=== PATIENT | male | born 1975 | race African-American/Black ===

== ENCOUNTER 2024-12-07 14:26 | Outpatient (AMB) | payer MEDICAID, SELFPAY ==
--- OUTSIDE RECORDS SUMMARY | 2024-12-07 14:33 | XMS_ITS | Clinical Summary ---
Author Organization [facility] Address [address] [place] [address] Care Team Providers Care Plaque Maker Name Role Phone Meera De La Cruz [facility] Primary Care Provider [phone] Source Comments PLEASE NOTE, if this patient is a minor, it may be UNLAWFUL to discuss sensitive information that is contained in these records (such as FAMILY PLANNING, MENTAL HEALTH or SUBSTANCE ABUSE) with the minor patient's parent or other person without the patient's specific authorization.[facility] Allergies No known active allergies Medications vitamin A and D ointmentIndicatio ns:Pruritic rash Apply topically as needed for dry skin 113 g 5 7 Active blood-glucose meter monitoring kitIndications:Di abetes mellitus without complication (HCC-CMS) as needed for blood glucose monitoring Freestyle lite glucometer. Check sugar daily. Dx; E11.65. 1 Each 0 Active lancets (FREESTYLE LANCETS) 28 gaugeIndications: Diabetes mellitus without complication (HCC-CMS) Freestyle lite lancets. Check sugar daily. Dx; E11.65. 100 Each 3 0 Active blood sugar diagnostic (FREESTYLE TEST) stripsIndications :Diabetes mellitus without complication (HCC-CMS) 1 Each as needed for high blood sugar Freestyle lite teststrips. Check sugar daily. Dx; E11.65. 100 Each 3 1 Active melatonin 10 mg tabIndications:Pr imary insomnia Take 1 Tablet by mouth once daily OTC med 2 Active magnesium 250 mg tab Take 1 Tablet by mouth daily (Pt takes OTC med) 30 Tablet 1 3 Active ibuprofen 800 mg tabletIndications :Routine general medical examination at a health care facility Take 1 Tablet by mouth 3 (three) times daily as needed for pain 60 Tablet 2 3 Active doxycycline (VIBRA-TABS) 100 mg tabletIndications :Need for malaria prophylaxis Take 1 Tablet by mouth once daily Start 1 to 2 day prior leaving [place] 90 Tablet 3 Active Active Problems Problem Noted Date Diagnosed Date Primary insomnia 06/23/2021 Gastroesophageal reflux disease without esophagi tis 06/23/2021 Type 2 diabetes mellitus wit hout complication, without long-term current use of insulin ([facility]) 06/23/2021 Palpitations 08/17/2020 Cutaneous skin tags, face 12/23/2018 Erythema 02/11/2018 Overview (02/11/2018): Pt was seen over at the ear nose and throat he has a diagnosed of erythema over the arytenoids Seasonal allergies 01/16/2016 Chronic lower back pain 07/19/2015 Overview (01/27/2016): XR L spine[place]01[place]17/16[place] [facility] [place] Normal. Hepatitis B surface antigen positive 05/06/2015 Overview (04/25/2017): By blood test 04/06/2015. Following ID at [facility] S/P treatment with Lamivudine visit 11/2015, Testing showed positive hepatitis B s Ag, Hep B e Ag negative, ALT is normal and his VL is only 166, so by our guidelines, he does not need to be treatment. Liver ultrasound done and showed echogenic liver. Repeat ALT within normal. Dx: Inactive Chronic Hep B. Plan liver Bx to r/o cirrhosis. Cont lab monitoring. >> He had liver Bx on 02/28/16, pathology showing Minimal chronic hepatitis with Grade 0-1 necroinflammatory activity and Stage 0 fibrosis with staining for Hepatitis B surface antigen. Immunizations Immunization Administration Dates Next Due Flu, Adjuvant, 65y+ (Fluad) 04/07/2020 Flu, Preservative Free 04/07/2020,03/02/2019, Hep B,adult,adjuvanted (HEPLISAV) 08/30/2020,01/2021 INFLUENZA, SEASONAL, INJECTABLE 04/17/2017,04/16 IPV (IPOL) 08/22/2022 MMR (MMR II/Priorix) 05/06/2015,04/05/2015 PFIZER COVID VACCINE, PURPLE CAP, 12+ 08/25/2020 ,08/04/2020 Pfizer-BioNTech COVID-19 Vac cine Bivalent, (RUSS PFIZER-BIONTECH COVID-19 VACCINE BIVALENT, (RUSS CAP 08/22/2022 TDAP 05/06/2015 Td (adult), 5 Lf tetanus tox oid, preservative free 04/05/2015 Family History Medical History Relation Name Comments Diabetes Brother No Known Problems Father No Known Problems Mother No Known Problems Sister Relation Name Status Comments Brother Alive Father Mother Alive Sister Alive Social History Tobacco Use Types Packs/Day Years Used Date Smoking Tobacco: Never Smokeless Tobacco: Never Tobacco Cessation:Counseling Given: Not Answered Alcohol Use Standard Drinks/Week Comments No 0 (1 standard drink = 0.6 oz pur e alcohol) Social Connections Answer Date Recorded Connectedness 0 08/22/2022 Financial Resource Strain Answer Date R ecorded Financial Resource Strain 0 2022 Stress Answer Date Recorded Stress 0 08/22/2022 Physical Activity Answer Date Recorded Physical Activity 0 03/15/2019 Food Insecurity Answer Date Recorded Food 0 08/22/2022 Transportation Needs Answer Date Record ed Transportation 0 08/22/2022 Housing Stability Answer Date Recorded Housing 0 08/22/2022 Safety and Environment Answer Date Paco rded Safety 0 08/22/2022 Utilities Answer Date Recorded Utilities 0 08/22/2022 Employment Answer Date Recorded Employment 0 03/15/2019 Sex and Gender Information Value Date Recorded Sex Assigned at Male 05/18/2017 9:27 AM PDT Legal Sex Male 12:03 PM PDT Gender Identity Male 05/18/2017 9:27 AM PDT Sexual Orientation Straight 05/18/2017 9: 27 AM PDT Last Filed Vital Signs Vital Sign Reading Time Taken Comments Blood Pressure 148/80 12/19/2022 3:41 PM EDT Pulse 80 12/19/2022 3:41 PM EDT Temperature 37.1 ??C (98.7 ??F) 08/22/2022 10:[address] Respiratory Rate 20 08/22/2022 10:28 AM EST Oxygen Saturation 95% 08/22/2022 10:28 AM EST Inhaled Oxygen Concentration - - Weight 87.2 kg (192 lb 3.2 oz) 08/22/2022 10:28 AM EST Height 182.9 cm (6') 08/22/2022 10:28 AM EST Body Mass Index 26.07 08/22/2022 10:28 AM EST Plan of Treatment Health Maintenance Due Date Last Done Comments Anxiety Screening 1974 Dental FMX/Pano 1974 Diabetes Foot Exam 1974 Tobacco Screening 1974 Syphilis Screening 12/05/1988 Imm-Hepatitis A (1 of 2 - Ri sk 2-dose series) 1993 Imm-Pneumococcal (1 of 2 - PCV) 1993 HIV Screening 08/06/2018 08/06/2017, 04/05/2015 CT Colonography 12/05/2019 FIT/gFOBT 12/05/2019 Fecal DNA 12/05/2019 Flexible Sigmoidoscopy 12/05/2019 Retinopathy Screening 01/27/2020 01/26/2019 Diabetes HbA1c 02/19/2023 08/22/2022, 09/19, 06/19/2021, Additional history exists Dental Prophy 03/08/2023 09/06/2022, 03/06/2022 Annual Wellness (Adult): Ind icated (All Coverage) 08/22/2023 08/22/2022, 04/26/2020, 12/23/2018, Additional history exists Lipid Screening 08/22/2023 08/22/2022, 09/19, 06/19/2021, Additional history exists Serum Creatinine 08/22/2023 08/22/2022, , 06/19/2021, Additional history exists Urine Albumin Creatinine Rat io Screening 08/22/2023 08/22/2022, 10/06/2021, 10/27/2020, Additional history exists Dental BW 09/08/2023 09/06/2022, 03/06/2022 Dental Examination 09/08/2023 09/06/2022, 03/06/2022 Dental Perio Charting 09/08/2023 09/06/2022 Hypertension Screening (#1) 12/19/2023 [id number] (4 - 2024-25 season) 2024 08/22/2022, 08/25/2020, 08/04/2020 Imm-Influenza (#1) 2024 04/07/2020, 0 04/07/2020, 03/02/2019, Additional history exists Alcohol and Drug Screen 07/22/2024 08/22/19 23, 09/15/2021, 07/28/2020, Additional history exists Depression Annual Screen 07/22/2024 08/22/2022 Imm-DTaP/Tdap/Td (2 - Td or Tdap) 05/06/2025 015, 04/05/2015 Colonoscopy 12/01/2027 11/30/2022 Colorectal Cancer Screening 12/01/2027 Hepatitis C Screening Completed 04/26/2020, 020 Imm-Hepatitis B Completed 08/30/2020, 07/28/2020 Procedures Procedure Name Priority Date/Time Associated Diagnosis Comments HISTORIC COLONOSCOPY 11/30/2022 3:00 AM EDT COMP PERIODONTAL EVALUATION - NEW/EST PATIENT Routine 09/06/2022 9:40 AM EST Encounter for dental examination BITEWINGS - FOUR RADIOGRAPHIC IMAGES Routine 09/06/2022 9:40 AM EST Encounter for dental examination PROPHYLAXIS - ADULT Routine 09/06/2022 9 :40 AM EST Encounter for dental examination PERIODIC ORAL EVALUATION ESTABLISHED PATIENT Routine 09/06/2022 9:40 AM EST Encounter for dental examination COMPREHENSIVE METABOLIC PANEL Routine 08/22/2022 11:47 AM EST Routine general medical examination at a health care facility Fatigue, unspecified type Need for vaccination Delayed ejaculation LIPID PANEL Routine 08/22/2022 11:47 AM EST Routine general medical examination at a health care facility Fatigue, unspecified type Need for vaccination Delayed ejaculation MICROALBUMIN/CREATININ E RATIO, URINE, RANDOM Routine 08/22/2022 11:47 AM EST Routine general medical examination at a health care facility Fatigue, unspecified type Need for vaccination Delayed ejaculation HGBA1C W/MPG Routine 08/22/2022 11:47 AM EST Routine general medical examination at a health care facility Fatigue, unspecified type Need for vaccination Delayed ejaculation HEPATITIS A,B,C PANEL Routine 04/26/2020 4:04 PM EDT Hepatitis B surface antigen positive ANTIBODY HIV-1&HIV-2 SINGLE RESULT Routine 08/06/2017 11:50 AM EST Routine adult health maintenance from Last 3 Months or Most Recently Relevant to Health Maintenance Results * HISTORIC COLONOSCOPY (11/30/2022 3:00 AM EDT) 11/30/2022 3:00 AM EDT Jakob Fry MD PROCEDURES Edited Result - Final * (ABNORMAL) HGBA1C W/MPG (08/22/2022 11:47 AM EST) HEMOGLOBIN A1C 6.0(H) <5.7 % of total Hgb [facility] Comment: For someone without known diabetes, a hemoglobin A1c value between 5.7% and 6.4% is consistent with prediabetes and should be confirmed with a follow-up test. For someone with known diabetes, a value <7% indicates that their diabetes is well controlled. A1c targets should be individualized based on duration of diabetes, age, comorbid conditions, and other considerations. This assay result is consistent with an increased risk of diabetes. Currently, no consensus exists regarding use of hemoglobin A1c for diagnosis of diabetes for children. MEAN PLASMA GLUCOSE 136 mg/dL (calc) [facility] Blood Blood / Unknown 08/22/2022 1 1:47 AM EST 08/22/2022 11:48 AM EST Meera [facility] - BLOOD DRAW Edited Result - Final [facility] [address] [place] [address], [facility] [address] [place] [address] (NL2) [place] [address] * MICROALBUMIN/CREATININE RATIO, URINE, RANDOM (08/22/2022 11:47 AM EST) CREATININE, RANDOM URINE 138 20 - 320 mg/dL [facility] MICROALBUMIN 0.6 mg/dL [facility] Comment: Reference Range Not established MICROALBUMIN/CREA TININE RATIO, RANDOM URINE 4 <30 mcg/mg creat [facility] Comment: The ADA defines abnormalities in albumin excretion as follows: Albuminuria Category ?Result (mcg/mg creatinine) Normal to Mildly increased ?? <30 Moderately increased ? 30-299 Severely increased ? > OR = 300 The ADA recommends that at least two of three specimens collected within a 3-6 month period be abnormal before considering a patient to be within a diagnostic category. Urine Urine specimen / Unknown 08/22/2022 11:47 AM EST 08/22/2022 11:48 AM EST Meera De La Cruz [facility] URINE AMBULATORY Final Res ult [facility] [address] [place] [address], [facility] [address] ([address]) [place] [address] * (ABNORMAL) LIPID PANEL (08/22/2022 11:47 AM EST) CHOLESTEROL, TOTAL 206(H) <200 mg/dL [facility] HDL CHOLESTEROL 66 > OR = 40 mg/dL [facility] TRIGLYCERIDES 39 <150 mg/dL [facility] LDL-CHOLESTEROL 128(H) 99 mg/dL (calc) [facility] Comment: Reference range: <100 Desirable range <100 mg/dL for primary prevention; ?? <70 mg/dL for patients with CHD or diabetic patients with > or = 2 CHD risk factors. LDL-C is now calculated using the Angelica calculation, which is a validated novel method providing better accuracy than the Friedewald equation in the estimation of LDL-C. Juan PEREYRA et al. JANE. 2013;310(19): 4252-0375 (http://education.[employer]/faq/GJV789) CHOL/HDLC RATIO 3.1 <5.0 (calc) [facility] NON-HDL CHOLESTEROL 140(H) <130 mg/dL (calc) [facility] Comment: For patients with diabetes plus 1 major ASCVD risk factor, treating to a non-HDL-C goal of <100 mg/dL (LDL-C of <70 mg/dL) is considered a therapeutic option. Blood Blood / Unknown 08/22/2022 1 1:47 AM EST 08/22/2022 11:48 AM EST Meera De La Cruz [facility] - BLOOD DRAW Final Result [employer] [facility] [address] [facility] [address] [place] [address], [facility] [address] [facility] (NL2) [place] [address] * (ABNORMAL) COMPREHENSIVE METABOLIC PANEL (08/22/2022 11:47 AM EST) GLUCOSE 108(H) 65 - 99 mg/dL [facility] Comment: ?Fasting reference interval For someone without known diabetes, a glucose value between 100 and 125 mg/dL is consistent with prediabetes and should be confirmed with a follow-up test. UREA NITROGEN (BUN) 15 7 - 25 mg/dL [facility] CREATININE (blood) 0.89 0.60 - 1.29 mg/dL [facility] EGFR 106 > OR = 60 mL/min/1 .73m2 [facility] Comment: The eGFR is based on the CKD-EPI 2020 equation. To calculate the new eGFR from a previous Creatinine or Cystatin C result, go to https://www.kidney.org/professionals/ kdoqi/gfr%5Fcalculator BUN/CREATININE RATIO NOT APPLICABLE 6 - 22 [facility] SODIUM 138 135 - 146 mmol/L [facility] POTASSIUM 4.8 3.5 - 5.3 mmol/L [facility] CHLORIDE 102 98 - 110 mmol/L [facility] CARBON DIOXIDE 30 20 - 32 mmol/L [facility] CALCIUM 9.4 8.6 - 10.3 mg/dL [facility] PROTEIN, TOTAL 7.2 6.1 - 8.1 g/dL [facility] ALBUMIN 4.3 3.6 - 5.1 g/dL [facility] GLOBULIN 2.9 1.9 - 3.7 g/dL (calc) [facility] ALBUMIN/GLOBUL IN RATIO 1.5 1.0 - 2.5 (calc) [facility] BILIRUBIN, TOTAL 0.6 0.2 - 1.2 mg/dL [facility] ALKALINE PHOSPHATASE 56 36 - 130 U/L [facility] AST 19 10 - 40 U/L [facility] ALT 19 9 - 46 U/L [facility] Blood Blood / Unknown 08/22/2022 1 1:47 AM EST 08/22/2022 11:48 AM EST Meera De La Cruz [facility] - BLOOD DRAW Edited Result - Final [facility] [address] [address], [facility] [address] (NL2) [place] [address] * (ABNORMAL) HEPATITIS A,B,C PANEL (04/26/2020 4:04 PM EDT) HEPATITIS B SURFACE ANTIBODY NEGATIVE NEGATIVE [facility] HEPATITIS B SURFACE ANTIGEN POSITIVE(A) NEGATIVE [facility] Comment: Over the counter supplements containing high doses of biotin may interfere with this assay. ??If interference is suspected, patients shoud be retested after refraining from biotin supplements for 72 hours. HEPATITIS C VIRUS DIAGNOSTIC NEGATIVE NEGATIVE [facility] HEPATITIS B CORE ANTIBODY POSITIVE(A) NEGATIVE [facility] HEPATITIS A ANTIBODY TOTAL POSITIVE(A) NEGATIVE [facility] Comment: Over the counter supplements containing high doses of biotin may interfere with this assay. ??If interference is suspected, patients shoud be retested after refraining from biotin supplements for 72 hours. Blood Blood / Unknown 04/26/2020 4 :04 PM EDT 04/26/2020 6:29 PM EDT Narrative [facility] - 04/26/2020 7:53 PM EDT [employer], a member of [address] [address] [employer] - Becky Aguirre [place] [id number] ORD# [id number] Meera De La Cruz [facility] - BLOOD DRAW Edited Result - Final Performing Organization Address [facility]/ZIP Co de Phone Number [address] [address], * HIV-1 & HIV-2 ANTIBODIES (08/06/2017 11:50 AM EST) [facility] HIV 1 AND 2 ANTIBODY SCREEN NEGATIVE NEGATIVE [facility] Comment: This assay is a 4th generation assay allowing for earlier detection of HIV infection by detecting the presence of the HIV-1 p24 antigen as well as the traditional antibodies to HIV type 1 (including group O) and type 2. ??Use of a 4th generation assay is the current CDC recommendation for HIV screening. Blood specimen (specimen) Blood / Unknown 08/06/2017 11:50 AM EST 08/06/2017 1:21 PM EST Narrative [facility] - 08/06/2017 6:33 PM EST [employer] [address] [place] [address] PT ID [id number] ORD# [id number] Julia Castillo CHIEF BUSINESS DEVELOPMENT OFFICER LAB - BLOOD DRAW Final Result Performing Organization Address City/[facility] Co de Phone Number [address] [address], [place] [phone] from Last 3 Months or Most Recently Relevant to Health Maintenance Insurance [employer] NET DENTAL [employer] [facility]) Member Subscriber Plan / Payer ( fective 2019-Present) Name:Moises Bauer Relation to Subscriber:Self Name:Moises Bauer Payer ID:[id number] Group ID:Not on file Type:Indemnity Address: [address] [place] [id number] Care Teams Plaque Maker Relationship Specialty Start Date End Date Meera De La Cruz FNP [address] [place] [address] PCP - General Internal Medicine 09/30/18
--- NOTE | 2024-12-07 15:04 | AM.OFFWIN_ITS ---
Intake Vital Signs 12/07/24 15:09 Weight 207 lb BP 122/80 Blood Pressure Location Rt brachial Position Sitting Pulse 81 Pulse Source Pulse Oximeter Pulse Oximetry (%) 98 Oxygen Delivery Method Room Air Intake Visit Reasons: REDYE HAND pain in foot/toes Intake Note: Patient here for left toe pain that has been present for about 1 month. Patient Tobacco Use Status: Never used Tobacco Allergies No Known Allergies Allergy (Verified 12/07/24 15:16) Do you need a note to return to daycare/school/sports/work: No HPI HPI Comments History of Present Illness Details History of Present Illness - The patient is a 49-year-old male pres enting with a painful left toe. - The discomfort has been ongoing for ap proximately one month and is severe enough to disturb sleep. - The patient clarified that the pain is not associated with itching. - This presentation followed a period [place] was [place] the [place] - Prior to the visit, the patient has no t attempted any antifungal treatments. Physical Exam General: Cooperative, healthy appearing, comfortable, no acute distress and well developed Orientation: Patient oriented x3 Limitations: No limitations Head: Normal to inspection Ears: Hearing grossly normal bilaterally Nose: Normal External nose present Face and sinus: Normal facial exam Eyes: Appearance normal, both eyes and all related structures Neck: Normal visual inspection and Yes full ROM Respiratory: Normal respiratory effort and able to speak in complete sentences. Skin: Macerated appearance on the left toe, suggestive of a fungal infection Neuro: Patient oriented x3 Extremities: Maceration in between 4th and 5th digits of left foot, no signs of bacterial infection noted. no rash or vesicles, no drainage, full ROM all toes and otherwise normal exam of left foot. [facility] Social History Patient Tobacco Use Status: Never used Tobacco Review of Systems Const All systems reviewed & are unremarkable except as noted in HPI and below Physical Exam Vital Signs: Last Vital Signs Pulse 81 12/07/24 15:09 BP 122/80 12/07/24 15:09 Pulse Ox 98 12/07/24 15:09 Oxygen Delivery Method Room Air 12/07/24 15:09 Assessment & Plan Assessment & Plan (1) Tinea pedis: Code(s): B35.3 - Tinea pedis Qualifiers: Laterality: left Qualified Code(s): B35.3 - Tinea pedis Plan: The patient's symptomatic presentation and clinical examination suggest a fungal infection in the webbing of the left 4th and 5th toes. I advised using an antifungal cream or powder, such as miconazole or clotrimazole, to be applied twice daily. It was stressed that the treatment may require a few weeks to show improvement. The importance of keeping the feet dry and clean to prevent further fungal growth was underscored. Follow-up was recommended if symptoms persist despite treatment. Patient was informed and verbally consented to the use of an ambient scribe for clinic note documentation during this visit. Coding Level of Care Code New Pt Level 3 (78542) Diagnoses Tinea pedis of left foot B35.3 Laterality: left
[2024-12-07 15:09] VITALS: BP 122/80; PULSE 81; O2SAT 98
== END 2024-12-07 15:33 | disposition home or self-care (01) ==
PROVIDERS: Visit Provider Physician Assistant
DX: B35.3 Tinea pedis (principal)

== ENCOUNTER → 2024-12-07 14:26 | Outpatient (BNVA) | payer MEDICAID, SELFPAY | PROVIDERS: Visit Provider Physician Assistant | DX: B35.3 Tinea pedis (principal) | CPT/HCPCS: 99202 ==

== ENCOUNTER 2024-12-21 13:59 | Outpatient (AMB) | payer OTHER, SELFPAY ==
--- NOTE | 2024-12-21 14:07 | MHC.OFFWIV ---
Intake Vital Signs 12/21/24 14:08 Weight 206 lb BP 140/90 H Blood Pressure Location Lt brachial Position Sitting Pulse 71 Pulse Source Pulse Oximeter Pulse Oximetry (%) 99 Oxygen Delivery Method Room Air Intake Visit Reasons: EP ? fungus on both feet Patient Tobacco Use Status: Never used Tobacco Allergies No Known Allergies Allergy (Verified 12/21/24 14:08) Do you need a note to return to daycare/school/sports/work: No HPI HPI Comments History of Present Illness Details History of Present Illness The patient is a 49-year-old male presenting with athlete's foot. The fungal infection has been troubling him for about two months, primarily affecting between the toes on both feet. The patient has attempted self-treatment with qvga-mqy-cqrzpaw products, but they have not been effective in alleviating the condition. He has been using Lamicil. 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 Previously, the patient faced obstacles in addressing the issue earlier due to lack of insurance but has since resolved this. He has an upcoming new patient visit on 01/18. He denies fever, chills, discharge, redness, pain, numbness, or tingling. Physical Exam General: Cooperative, healthy appearing, comfortable, no acute distress and well developed Respiratory: Normal respiratory effort and able to speak in complete sentences. Clear to auscultation bilaterally Cardiovascular: Regular rate and rhythm. Normal S1 and S2 Skin: Moist, white skin noted between the toes on the feet bilaterally. No flaking noted. Feet ashy, no discharge noted. Extremities: Normal to inspection except for fungal infection on both feet Patient was informed and verbally consented to the use of an ambient scribe for clinic note documentation during this visit. [facility] Social History Patient Tobacco Use Status: Never used Tobacco Review of Systems Const All systems reviewed & are unremarkable except as noted in HPI and below Physical Exam Vital Signs: Last Vital Signs Pulse 71 12/21/24 14:08 BP 140/90 H 12/21/24 14:08 Pulse Ox 99 12/21/24 14:08 Oxygen Delivery Method Room Air 12/21/24 14:08 Assessment & Plan Assessment & Plan (1) Tinea pedis: Code(s): B35.3 - Tinea pedis Qualifiers: Laterality: left Qualified Code(s): B35.3 - Tinea pedis Plan: Most likely tinea Plan I prescribed a stronger topical antifungal cream for the treatment of the patient's persistent athlete's foot. I instructed him to apply the medication daily and to keep his feet dry by removing socks when at home. This treatment should be continued until the upcoming podiatry consultation. Additionally, I plan to make a referral to podiatry to manage and further evaluate the condition. The necessary prescription details were forwarded to the patient's preferred pharmacy, [facility]. Orders: Referrals Podiatry Referral B35.3 - Tinea pedis Medications: New terbinafine HCl 1% 1 appl topical BID 14 days 30 grams 1RF Coding Level of Care Code New Pt Level 3 (43517) Diagnoses Tinea pedis of left foot B35.3 Laterality: left
[2024-12-21 14:08] VITALS: BP 140/90; PULSE 71; O2SAT 99
--- OUTSIDE RECORDS SUMMARY | 2024-12-21 15:16 | XMS_ITS | Clinical Summary ---
Author Organization [facility] Address [address] [place] [address] Care Team Providers Care Crtts Name Role Phone Meera De La Cruz [facility] Primary Care Provider [phone] Source Comments PLEASE NOTE, if this patient [...] complication, without long-term current use of insulin ([facility]) 06/23/2021 Palpitations 08/17/2020 Cutaneous skin tags, face 12/23/2018 Erythema 02/11/2018 Overview (02/11/2018): Pt was seen over at the ear nose and throat he has a diagnosed of erythema over the arytenoids Seasonal allergies 01/16/2016 Chronic lower back pain 07/19/2015 Overview (01/27/2016): XR L spine(01/17/16, [facility] [place] [facility]): Normal. Hepatitis B surface antigen positive 05/06/2015 Overview (04/25/2017): By blood test 04/06/2015. Following ID at [facility] S/P treatment with Lamivudine visit 11/2015, Testing [...] Charting 09/08/2023 09/06/2022 Hypertension Screening (#1) 12/19/2023 [id number] (4 - 2024-25 season) 2024 08/22/2022, 08/25/2020, 08/04/2020 Imm-Influenza (#1) 2024 04/07/2020, 0 04/07/2020, 03/02/2019, Additional history exists Alcohol and Drug Screen 07/22/2024 08/22/19 23, 09/15/2021, 07/28/2020, Additional history exists Depression Annual Screen 07/22/2024 08/22/2022 Imm-Zoster, Recombinant (1 of 2) 2024 Imm-DTaP/Tdap/Td (2 - Td or Tdap) 05/06/2025 [...] A1C 6.0(H) <5.7 % of total Hgb [employer] Comment: For someone without known diabetes, a [...] children. MEAN PLASMA GLUCOSE 136 mg/dL (calc) [facility] Blood Blood / Unknown 08/22/2022 1 1:47 AM EST 08/22/2022 11:48 AM EST [facility] - BLOOD DRAW Edited Result - Final [facility] [address] [place] [address] [address] [place] [address], [employer] [address] [place] [address] (NL2) [place] [address] * MICROALBUMIN/CREATININE RATIO, URINE, RANDOM (08/22/2022 11:47 AM EST) CREATININE, RANDOM URINE 138 20 - 320 mg/dL [facility] MICROALBUMIN 0.6 mg/dL Stream[employer] [facility] Comment: Reference Range Not established MICROALBUMIN/CREA TININE RATIO, RANDOM URINE 4 <30 mcg/mg creat [facility] Comment: The ADA defines abnormalities in albumin [...] 11:48 AM EST Meera De La Cruz [facility] URINE AMBULATORY Final Res ult [employer] [address] [place] [address], [employer] [address] (NL2) [place] [address] * (ABNORMAL) LIPID PANEL (08/22/2022 11:47 AM EST) CHOLESTEROL, TOTAL 206(H) <200 mg/dL [facility] HDL CHOLESTEROL 66 > OR = 40 mg/dL arch[facility] TRIGLYCERIDES 39 <150 mg/dL [facility] LDL-CHOLESTEROL 128(H) 99 mg/dL (calc) [facility] Comment: Reference range: <100 Desirable range <100 mg/dL for primary prevention; ?? <70 mg/dL for patients with CHD or diabetic patients with > or = 2 CHD risk factors. LDL-C is now calculated using the Angelica calculation, which is a validated novel method providing better accuracy than the Friedewald equation in the estimation of LDL-C. Juan PEREYRA et al. JANE. 2013;310(19): 3635-4829 (http://education.Eventcheq/faq/YAJ428) CHOL/HDLC RATIO 3.1 <5.0 (calc) [employer] NON-HDL CHOLESTEROL 140(H) <130 mg/dL (calc) [employer] Comment: For patients with diabetes plus 1 major ASCVD risk factor, treating to a non-HDL-C goal of <100 mg/dL (LDL-C of <70 mg/dL) is considered a therapeutic option. Blood Blood / Unknown 08/22/2022 1 1:47 AM EST 08/22/2022 11:48 AM EST Meera De La Cruz [facility] - BLOOD DRAW Final Result [employer] [address] [address], [employer] [address] (NL2) [place] [address] * (ABNORMAL) COMPREHENSIVE METABOLIC PANEL (08/22/2022 11:47 AM EST) GLUCOSE 108(H) 65 - 99 mg/dL [employer] Comment: ?Fasting reference interval For someone without known diabetes, a glucose value between 100 and 125 mg/dL is consistent with prediabetes and should be confirmed with a follow-up test. UREA NITROGEN (BUN) 15 7 - 25 mg/dL [employer] [facility] CREATININE (blood) 0.89 0.60 - 1.29 mg/dL [employer] [facility] EGFR 106 > OR = 60 mL/min/1 .73m2 [employer] Comment: The eGFR is based on the CKD-EPI 2020 equation. To calculate the new eGFR from a previous Creatinine or Cystatin C result, go to https://www.kidney.org/professionals/ kdoqi/gfr%5Fcalculator BUN/CREATININE RATIO NOT APPLICABLE 6 - 22 [employer] SODIUM 138 135 - 146 mmol/L [employer] POTASSIUM 4.8 3.5 - 5.3 mmol/L [employer] CHLORIDE 102 98 - 110 mmol/L [employer] CARBON DIOXIDE 30 20 - 32 mmol/L [employer] CALCIUM 9.4 8.6 - 10.3 mg/dL [facility] PROTEIN, TOTAL 7.2 6.1 - 8.1 g/dL [facility] ALBUMIN 4.3 3.6 - 5.1 g/dL [facility] GLOBULIN 2.9 1.9 - 3.7 g/dL (calc) [facility] ALBUMIN/GLOBUL IN RATIO 1.5 1.0 - 2.5 (calc) [facility] BILIRUBIN, TOTAL 0.6 0.2 - 1.2 mg/dL [facility] ALKALINE PHOSPHATASE 56 36 - 130 U/L [facility] AST 19 10 - 40 U/L [employer] ALT 19 9 - 46 U/L [employer] Blood Blood / Unknown 08/22/2022 1 1:47 AM EST 08/22/2022 11:48 AM EST Meera De La Cruz [facility] - BLOOD DRAW Edited Result - Final archify [facility] [address] [facility] [address] [place] [address], [employer] [facility] [address] [facility] (NL2) [place] [address] * (ABNORMAL) HEPATITIS A,B,C PANEL (04/26/2020 4:04 PM EDT) HEPATITIS B SURFACE ANTIBODY NEGATIVE NEGATIVE [facility] HEPATITIS B SURFACE ANTIGEN POSITIVE(A) NEGATIVE [facility] Comment: Over the counter supplements containing high doses of biotin may interfere with this assay. ??If interference is suspected, patients shoud be retested after refraining from biotin supplements for 72 hours. HEPATITIS C VIRUS DIAGNOSTIC NEGATIVE NEGATIVE [facility] HEPATITIS B CORE ANTIBODY POSITIVE(A) NEGATIVE [facility] HEPATITIS A ANTIBODY TOTAL POSITIVE(A) NEGATIVE [facility] Comment: Over the counter supplements containing high doses of biotin may interfere with this assay. ??If interference is suspected, patients shoud be retested after refraining from biotin supplements for 72 hours. Blood Blood / Unknown 04/26/2020 4 :04 PM EDT 04/26/2020 6:29 PM EDT [facility] - 04/26/2020 7:53 PM EDT [employer], a member of [address] [address] [employer] - Becky Aguirre MD [place] [id number] ORD# [id number] Meera De La [facility] - BLOOD DRAW Edited Result - Final Performing Organization Address City/[facility]/ZIP Co de Phone Number [address] [address], * HIV-1 & HIV-2 ANTIBODIES (08/06/2017 11:50 AM EST) [facility] HIV 1 AND 2 ANTIBODY SCREEN NEGATIVE NEGATIVE [facility] Comment: This assay is a [...] 11:50 AM EST 08/06/2017 1:21 PM EST [facility] - 08/06/2017 6:33 PM EST [employer] [address] [place] [address] PT ID [id number] ORD# [id number] Julia Castillo [facility] - BLOOD DRAW Final Result Performing Organization Address City/[facility] Co de Phone Number [address] [address], from Last 3 Months or Most Recently Relevant to Health Maintenance Insurance [employer] NET DENTAL [facility] [place] [address] [facility] ([facility]) Member Subscriber Plan / Payer ( fective 2019-Present) Name:Moises Bauer Relation to Subscriber:Self Name:Moises Bauer Payer ID:[id number] Group ID:Not on file Type:Indemnity Address: [address] [place] [id number] Care Teams Crtts Relationship Specialty Start Date End Date Meera De La Cruz FNP [address] [place] [address] PCP - General Internal Medicine 09/30/18
== END 2024-12-21 15:12 | disposition home or self-care (01) ==
PROVIDERS: Visit Provider Physician Assistant Medical
DX: B35.3 Tinea pedis (principal)

== ENCOUNTER → 2024-12-21 13:59 | Outpatient (BNVA) | payer OTHER, SELFPAY | PROVIDERS: Visit Provider Nurse Practitioner Family | DX: B35.3 Tinea pedis (principal) | CPT/HCPCS: 99212 ==

== ENCOUNTER 2025-01-18 14:00 | Outpatient (AMB) | payer OTHER, SELFPAY ==
--- NOTE | 2025-01-18 14:03 | A.OFFPC_ITS ---
Vital Signs 01/18/25 14:04 01/18/25 14:38 Height 6 ft 2 in Weight 205 lb 6 oz BMI 26.4 BP 126/90 H 140/78 H Blood Pressure Location Lt brachial Lt brachial Position Sitting Sitting Respiration 16 Pulse 86 Pulse Source Pulse Oximeter Temp 99 F Temp Source Oral Pulse Oximetry (%) 98 Oxygen Delivery Method Room Air Intake Visit Reasons: establish care Director Of Workforce Development Required: No Accompanied by: Self / Same As Patient Allergies No Known Allergies Allergy (Verified 01/18/25 14:23) Medication List - Last Reconciled 01/18/25 by NAVEEN Rivera terbinafine HCl 1% 1 appl topical BID 14 days Tobacco use date assessed: 01/18/25 Dental Screening Dental Screen Date: 01/18/25 Did you have a dental visit in the last 12 months?: No Did you have a dental problem in the last 6 months where you did not have access to dental care?: No Was dental information given to patient?: No HPI establish care HPI Details Previous PCP:[facility], 3 years agorodolfo Last visit:he does not remember 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 The patient will return in the 6 weeks for completed physical and lab review colonoscopy 2 years ago. Reports that everything was good and they told him to repeat in 10 years. [facility] Family History (Updated 01/18/25 @ 14:14 by ISH Ramirez) Other Diabetes Social History Housing: Apartment Patient Tobacco Use Status: Never used Tobacco e-Cigarette/Vaping Use: Never Used Second Hand Smoke Exposure: No service: No Current occupational status: employed Current occupational exposures/hazards: No Cognitive needs: No Hearing needs: No Vision needs: Yes Questionnaire PHQ-9 Over the last 2 weeks, how often have you been bothered by any of the following problems? 1. Little interest or pleasure in doing things: not at all 2. Feeling down, depressed, or hopeless: not at all 3. Trouble falling or staying asleep, or sleeping too much: not at all 4. Feeling tired or having little energy: not at all 5. Poor appetite or overeating: not at all 6. Feeling bad about yourself - or that you are a failure or have let yourself or your family down: not at all 7. Trouble concentrating on things, such as reading the newspaper or watching television: not at all 8. Moving or speaking so slowly that other people could have noticed. Or the opposite - being so fidgety or restless that you have been moving around a lot more than usual: not at all 9. Thoughts that you would be better off or of hurting yourself in some way: not at all Total score: 0 Source: Developed by Drs. Calixto Rodríguez, Nona Courtney, Aron Carroll and colleagues, with an educational niharika from [employer]. Thrive Questionnaire Date Thrive assessed: 01/18/25 I am a: Patient What is your living situation today?: I have a steady place to live Within the past 12 months, did the food you bought not last and you didn't have the money to get more?: I choose not to answer this question Within the past 12 months, did you worry whether your food would run out before you got money to buy more?: Never true Do you have trouble paying for medicines?: No Do you have trouble getting transportation to medical appointments?: No Do you have trouble paying your heating and electricity bill?: No Do you have trouble taking care of your child, family member or friend?: No Do you have trouble with day-to-day activities such as bathing, preparing meals, shopping, managing finances, etc.?: No Are you currently unemployed and looking for a job?: No Are you interested in more education?: No Please select the resources that you would like help with: None Currently or been in a relationship where the following occur: I choose not to answer THRIVE Score: 0 AUDIT C Alcohol Use Questionnaire (AUDIT-C) 1. How often do you have a drink containing alcohol?: Never 3. How often do you have six or more drinks on one occasion?: Never Total Score: 0 WERO-7 AMB Questionnaire WERO-7 Date WERO - 7 assessed: 01/18/25 Feeling nervous, anxious, or on edge: 0 = Not at all Not being able to stop or control worryin = Not at all Worrying too much about different things: 0 = Not at all Trouble relaxin = Not at all Being so restless that it is hard to sit still: 0 = Not at all Becoming easily annoyed or irritable: 0 = Not at all Feeling afraid as if something awful might happen: 0 = Not at all Total WERO-7 score (0-4 normal; 5-9 mild; 10-14 moderate; 15-21 severe): 0 Source: Developed by Drs. Calixto Rodríguez, Nona Courtney, Aron Carroll and colleagues, with an educational niharika from [employer]. Review of Systems Const Denies headache(s) Eyes Denies loss of vision ENT Denies vertigo, Denies dizziness, Denies headache(s) and Denies sore throat Card Denies chest pain, Denies leg edema and Denies lightheadedness Resp Denies cough, Denies hemoptysis and Denies wheezing GI Denies abdominal pain, Denies melena, Denies constipation, Denies diarrhea and Denies vomiting Denies dysuria, Denies urinary frequency and Denies urinary urgency Musc Denies arthralgias, Denies joint swelling, Denies numbness and Denies tingling Neuro Denies Abnormal speech present, Denies behavioral changes, Denies vertigo, Denies dizziness, Denies headache(s), Denies loss of vision, Denies memory loss, Denies numbness and Denies tingling Psych Denies anxiety, Denies behavioral changes, Denies depression, Denies memory loss and Denies panic attacks Aníbal/Lymph Denies easy bleeding and Denies easy bruising Aller/Immun Denies wheezing Physical exam (Primary Care) Vital Signs: Last Vital Signs Temp 99 F 01/18/25 14:04 Pulse 86 01/18/25 14:04 Resp 16 01/18/25 14:04 BP 140/78 H 01/18/25 14:38 Pulse Ox 98 01/18/25 14:04 Oxygen Delivery Method Room Air 01/18/25 14:04 BMI result Body Mass Index 26.4 Tobacco/Smoking Status: Tobacco use Status Tobacco use date assessed 01/18/25 01/18/25 14:08 Patient Tobacco Use Status Never used Tobacco 01/18/25 14:04 e-Cigarette/Vaping Use Never Used 01/18/25 14:16 PHQ-9: PHQ-9 Score PHQ-9: Total score 0 01/18/25 14:36 Thrive Assessment: Date of Thrive Assessment Date Thrive assessed 01/18/25 01/18/25 14:08 Currently or been in a relationship where the following occur: I choose not to answer Const General: healthy appearing, no acute distress, alert and awake Nutritional Appearance: well nourished Orientation/consciousness: oriented to person, oriented to place and oriented to time HENMT Ears: TM's normal bilaterally General nose exam: Normal nasal mucous membranes and turbinates present Eyes Conjunctivae: conjunctivae normal Sclerae: sclerae normal Pupils: Equal, round and reactive pupils present Neck Neck: Yes no lymphadenopathy and Yes no JVD Thyroid: Thyroid normal Carotids: no bruits Resp Effort & Inspection: normal respiratory effort and not tachypneic Auscultation: no crackles, no rales, no rhonchi and no wheezes Cardio Rate: regular rate Rhythm: regular rhythm Heart sounds: no murmurs and normal S1 and S2 GI Palpation (GI): Soft to palpation, nontender, no hepatomegaly and no sp lenomegaly Auscultation: normal bowel sounds Skin General skin exam: no rashes or lesions noted and dry skin Neuro General: oriented to person, oriented to place and oriented to time Cranial nerves: Yes Equal, round and reactive pupils present Speech: No Abnormal speech present Gait exam (Neuro): Normal gait present Motor exam (neuro): no tremor noted Extrem Right upper extremity: full ROM Left upper extremity: full ROM Right lower extremity: full ROM; no edema Left lower extremity: full ROM; no edema Psych Mental Status: mental status grossly normal Speech and movement: Normal speech and movement present Affect: normal affect Attitude: cooperative Thought process: Normal thought process present Results AMB Hemoglobin A1c AMB Hemoglobin A1c 7.9 % Last Edit by ISH Ramirez on 01/18/25 14 :48 Coding Assessment & Plan Assessment & Plan Orders: Orders Complete Blood Count Auto Diff Today B35.3 - Tinea pedis, Z00.00 - Encounter for general adult medical examination without abnormal findings Comprehensive [place]. Panel Fast Today B35.3 - Tinea pedis, Z00.00 - Encounter for general adult medical examination without abnormal findings PSA,Total (Free>4and<10) Today B35.3 - Tinea pedis, Z00.00 - Encounter for general adult medical examination without abnormal findings Lipid Panel Today B35.3 - Tinea pedis, Z00.00 - Encounter for general adult medical examination without abnormal findings TSH reflex Free T4 Today B35.3 - Tinea pedis, Z00.00 - Encounter for general adult medical examination without abnormal findings UA CC w/rflx Micro + Cult Today B35.3 - Tinea pedis, Z00.00 - Encounter for general adult medical examination without abnormal findings Vitamin D 25-OH Total Today B35.3 - Tinea pedis, Z00.00 - Encounter for general adult medical examination without abnormal findings AMB Hemoglobin A1c Today Z13.9 - Encounter for screening, unspecified Medications: New ciclopirox 0.77% 1 appl topical BID 90 grams 1RF 4 weeks metformin 500 mg PO BID 60 tabs 2RF Discontinued terbinafine HCl 1% Discontinued Reason: Duplicate 1 appl topical BID 14 days 30 grams 1RF
[2025-01-18 14:04] VITALS: BP 126/90; PULSE 86; RESP 16; TEMP 37.2; O2SAT 98; BMI 26.4
--- OUTSIDE RECORDS SUMMARY | 2025-01-18 14:36 | XMS_ITS | Clinical Summary ---
Author Organization [facility] Address [address] [place] [address] Care Team Providers Care Shafting Worker Name Role Phone Meera De La Cruz [facility] Primary Care Provider [phone] Source Comments PLEASE NOTE, if this patient [...] meter monitoring kitIndications:Di abetes mellitus without complication ([facility]) as needed for blood glucose monitoring Freestyle lite glucometer. Check sugar daily. Dx; E11.65. 1 Each 0 Active lancets (FREESTYLE LANCETS) 28 gaugeIndications: Diabetes mellitus without complication ([facility]) Freestyle lite lancets. Check sugar daily. Dx; E11.65. 100 Each 3 0 Active blood sugar diagnostic (FREESTYLE TEST) stripsIndications :Diabetes mellitus without complication ([facility]) 1 Each as needed for high blood [...] complication, without long-term current use of insulin ([facility]) 06/23/2021 Palpitations 08/17/2020 Cutaneous skin tags, face 12/23/2018 Erythema 02/11/2018 Overview (02/11/2018): Pt was seen over at the ear nose and throat he has a diagnosed of erythema over the arytenoids Seasonal allergies 01/16/2016 Chronic lower back pain 07/19/2015 Overview (01/27/2016): XR L spine(01/17/16, [facility]): Normal. Hepatitis B surface antigen positive 05/06/2015 Overview (04/25/2017): By blood test 04/06/2015. Following ID at [facility] S/P treatment with Lamivudine visit [...] 80 12/19/2022 3:41 PM EDT Temperature 37.1 C (98.7 F) 08/22/2022 10:28 AM EST Respiratory Rate 20 08/22/2022 10:28 AM EST [...] Flexible Sigmoidoscopy 12/05/2019 Retinopathy Screening 01/27/2020 01/26/2019 Hemoglobin A1c 02/19/2023 08/22/2022, 09/19, 06/19/2021, Additional history exists [...] Charting 09/08/2023 09/06/2022 Hypertension Screening (#1) 12/19/2023 [id number] ( season) 2024 08/22/2022, 08/25/2020, 08/04/2020 Alcohol and Drug Screen 07/22/2024 08/22/19 23, 09/15/2021, 07/28/2020, Additional history exists Depression Annual Screen 07/22/2024 08/22/2022 Imm-Zoster, Recombinant (1 of 2) 2024 Imm-Influenza (Season Ended) 2025, 04/07/2020, 03/02/2019, Additional history exists Imm-DTaP/Tdap/Td (2 - Td or Tdap) 05/06/2025 [...] A1C 6.0(H) <5.7 % of total Hgb [employer] Comment: For someone without known diabetes, a [...] children. MEAN PLASMA GLUCOSE 136 mg/dL (calc) [employer] Blood Blood / Unknown 08/22/2022 1 1:47 AM EST 08/22/2022 11:48 AM EST Meera [facility] - BLOOD DRAW Edited Result - Final [employer] [address] [place] [address] [address] [place] [address], [employer] [address] [place] [address] (NL2) [place] [address] * MICROALBUMIN/CREATININE RATIO, URINE, RANDOM (08/22/2022 11:47 AM EST) CREATININE, RANDOM URINE 138 20 - 320 mg/dL [facility] MICROALBUMIN 0.6 mg/dL [employer] [facility] Comment: Reference Range Not established MICROALBUMIN/CREA TININE RATIO, RANDOM URINE 4 <30 mcg/mg creat [employer] [facility] Comment: The ADA defines abnormalities in albumin excretion as follows: Albuminuria Category Result (mcg/mg creatinine) Normal to Mildly increased <30 Moderately increased 30-299 Severely increased > OR = 300 The ADA recommends that at least two of three specimens collected within a 3-6 month period be abnormal before considering a patient to be within a diagnostic category. Urine Urine specimen / Unknown 08/22/2022 11:47 AM EST 08/22/2022 11:48 AM EST Meera De La Cruz [facility] LAB URINE AMBULATORY Final Res ult [employer] [facility] [address] [facility] 3RD [place] [address], [facility] [address] [facility] (NL2) [place] [address] * (ABNORMAL) LIPID PANEL (08/22/2022 11:47 AM EST) CHOLESTEROL, TOTAL 206(H) <200 mg/dL [facility] HDL CHOLESTEROL 66 > OR = 40 mg/dL [employer] [facility] TRIGLYCERIDES 39 <150 mg/dL [facility] LDL-CHOLESTEROL 128(H) 99 mg/dL (calc) [employer] [facility] Comment: Reference range: <100 Desirable range <100 mg/dL for primary prevention; <70 mg/dL for patients with CHD or diabetic patients with > or = 2 CHD risk factors. LDL-C is now calculated using the Angelica calculation, which is a validated novel method providing better accuracy than the Friedewald equation in the estimation of LDL-C. Juan PEREYRA et al. JANE. 2013;310(19): 6072-4946 (http://education.Parature.Biologics Modular/faq/RQK778) CHOL/HDLC RATIO 3.1 <5.0 (calc) [facility] NON-HDL CHOLESTEROL 140(H) <130 mg/dL (calc) [facility] [employer] Comment: For patients with diabetes plus 1 major ASCVD risk factor, treating to a non-HDL-C goal of <100 mg/dL (LDL-C of <70 mg/dL) is considered a therapeutic option. Blood Blood / Unknown 08/22/2022 1 1:47 AM EST 08/22/2022 11:48 AM EST Meera De La Cruz [facility] LAB - BLOOD DRAW Final Result [facility] [address] [address], [facility] [address] [facility] (NL2) [place] [address] * (ABNORMAL) COMPREHENSIVE METABOLIC PANEL (08/22/2022 11:47 AM EST) GLUCOSE 108(H) 65 - 99 mg/dL [facility] Comment: Fasting reference interval For someone without known diabetes, a glucose value between 100 and 125 mg/dL is consistent with prediabetes and should be confirmed with a follow-up test. UREA NITROGEN (BUN) 15 7 - 25 mg/dL [facility] CREATININE (blood) 0.89 0.60 - 1.29 mg/dL [facility] EGFR 106 > OR = 60 mL/min/1 .73m2 [facility] Comment: The eGFR is based on the CKD-EPI 2020 equation. To calculate the new eGFR from a previous Creatinine or Cystatin C result, go to https://www.kidney.org/professionals/ kdoqi/gfr%5Fcalculator BUN/CREATININE RATIO NOT APPLICABLE 6 - 22 [facility] SODIUM 138 135 - 146 mmol/L [facility] POTASSIUM 4.8 3.5 - 5.3 mmol/L [facility] CHLORIDE 102 98 - 110 mmol/L [facility] CARBON DIOXIDE 30 20 - 32 mmol/L [facility] CALCIUM 9.4 8.6 - 10.3 mg/dL [facility] PROTEIN, TOTAL 7.2 6.1 - 8.1 g/dL [facility] ALBUMIN 4.3 3.6 - 5.1 g/dL [facility] [facility] GLOBULIN 2.9 1.9 - 3.7 g/dL (calc) [facility] ALBUMIN/GLOBUL IN RATIO 1.5 1.0 - 2.5 (calc) [facility] BILIRUBIN, TOTAL 0.6 0.2 - 1.2 mg/dL [facility] ALKALINE PHOSPHATASE 56 36 - 130 U/L [employer] [facility] AST 19 10 - 40 U/L [facility] ALT 19 9 - 46 U/L [facility] Blood Blood / Unknown 08/22/2022 1 1:47 AM EST 08/22/2022 11:48 AM EST Meera De La Cruz [facility] LAB - BLOOD DRAW Edited Result - Final [facility] [address] [address], [facility] [address] (NL2) [place] [address] * (ABNORMAL) HEPATITIS A,B,C PANEL (04/26/2020 4:04 PM EDT) HEPATITIS B SURFACE ANTIBODY NEGATIVE NEGATIVE [facility] HEPATITIS B SURFACE ANTIGEN POSITIVE(A) NEGATIVE [facility] Comment: Over the counter supplements containing high doses of biotin may interfere with this assay. If interference is suspected, patients shoud be retested after refraining from biotin supplements for 72 hours. HEPATITIS C VIRUS DIAGNOSTIC NEGATIVE NEGATIVE [facility] HEPATITIS B CORE ANTIBODY POSITIVE(A) NEGATIVE [facility] HEPATITIS A ANTIBODY TOTAL POSITIVE(A) NEGATIVE [facility] Comment: Over the counter supplements containing high doses of biotin may interfere with this assay. If interference is suspected, patients shoud be retested after refraining from biotin supplements for 72 hours. Blood Blood / Unknown 04/26/2020 4 :04 PM EDT 04/26/2020 6:29 PM EDT Narrative [facility] - 04/26/2020 7:53 PM EDT [employer], a member of [address] [address] Pediatric Physician - Becky Aguirre MD PT ID [id number] ORD# [id number] Meerajoanne [facility] - BLOOD DRAW Edited Result - Final Performing Organization Address [facility]/ZIP Co de Phone Number [facility] [address] [place] [address], [place] [phone] * HIV-1 & HIV-2 ANTIBODIES (08/06/2017 11:50 AM EST) [facility] HIV 1 AND 2 ANTIBODY SCREEN NEGATIVE NEGATIVE [facility] Comment: This assay is a 4th generation assay allowing for earlier detection of HIV infection by detecting the presence of the HIV-1 p24 antigen as well as the traditional antibodies to HIV type 1 (including group O) and type 2. Use of a 4th generation assay is the current CDC recommendation for HIV screening. Blood specimen (specimen) Blood / Unknown 08/06/2017 11:50 AM EST 08/06/2017 1:21 PM EST [facility] - 08/06/2017 6:33 PM EST [address] [address] PT ID [id number] ORD# [id number] Julia Castillo [facility] - BLOOD DRAW Final Result Performing Organization Address [facility] de Phone Number [address] [address], [place] [phone] from Last 3 Months or Most Recently Relevant to Health Maintenance Insurance HEALTH SAF[employer]Y NET DENTAL [employer] [place] [address] [facility]) Member Subscriber Plan / Payer (Ef fective 2019-Present) Name:Moises Bauer Relation to Subscriber:Self Name:Moises Bauer Payer ID:[id number] Group ID:Not on file Type:Indemnity Address: [address] [place] [id number] Care Teams Shafting Worker Relationship Specialty Start Date End Date Meera De La Cruz FNP [address] [place] [phone] PCP - General Internal Medicine 09/30/18
[2025-01-18 14:38] VITALS: BP 140/78
== END 2025-01-18 14:55 | disposition home or self-care (01) ==
LOC: HO.HMCH 14:01
DX: Z13.9 Encounter for screening, unspecified (principal)

== ENCOUNTER → 2025-01-18 14:00 | Outpatient (BNVA) | payer OTHER, SELFPAY | DX: E11.65 Type 2 diabetes mellitus with hyperglycemia (principal); B35.3 Tinea pedis | CPT/HCPCS: 83036; 96127; 99202 ==

== ENCOUNTER 2025-01-19 11:06 | Outpatient (REF) | payer OTHER, SELFPAY ==
--- OUTSIDE RECORDS SUMMARY | 2025-01-19 12:24 | XMS_ITS | Clinical Summary ---
Author Organization [facility] Address [address] [place] [address] Care Team Providers Care Histology Supervisor Name Role Phone Meera De La Cruz [facility] Primary Care Provider [phone] Source Comments PLEASE NOTE, if this patient [...] meter monitoring kitIndications:Di abetes mellitus without complication ([facility]) as needed for blood glucose monitoring Freestyle lite glucometer. Check sugar daily. Dx; E11.65. 1 Each 0 Active lancets (FREESTYLE LANCETS) 28 gaugeIndications: Diabetes mellitus without complication ([facility]) Freestyle lite lancets. Check sugar daily. Dx; E11.65. 100 Each 3 0 Active blood sugar diagnostic (FREESTYLE TEST) stripsIndications :Diabetes mellitus without complication ([facility]) 1 Each as needed for high blood [...] complication, without long-term current use of insulin ([facility]) 06/23/2021 Palpitations 08/17/2020 Cutaneous skin tags, face 12/23/2018 Erythema 02/11/2018 Overview (02/11/2018): Pt was seen over at the ear nose and throat he has a diagnosed of erythema over the arytenoids Seasonal allergies 01/16/2016 Chronic lower back pain 07/19/2015 Overview (01/27/2016): XR L spine(01/17/16, [facility]): Normal. Hepatitis B surface antigen positive 05/06/2015 Overview (04/25/2017): By blood test 04/06/2015. Following ID at [facility] S/P treatment with Lamivudine visit 11/2015, [...] Charting 09/08/2023 09/06/2022 Hypertension Screening (#1) 12/19/2023 Mob-VUHQQ-32 ( season) 2024 08/22/2022, 08/25/2020, 08/04/2020 Alcohol [...] A1C 6.0(H) <5.7 % of total Hgb M2M [facility] Comment: For someone without known diabetes, a [...] children. MEAN PLASMA GLUCOSE 136 mg/dL (calc) M2M Solution Blood Blood / Unknown 08/22/2022 1 1:47 AM EST 08/22/2022 11:48 AM EST Meera [facility] - BLOOD DRAW Edited Result - Final [employer] [address] [place] [address] [address] [place] [address], M2M [employer] [address] [place] [address] (NL2) [place] [address] * MICROALBUMIN/CREATININE RATIO, URINE, RANDOM (08/22/2022 11:47 AM EST) CREATININE, RANDOM URINE 138 20 - 320 mg/dL [employer] [facility] MICROALBUMIN 0.6 mg/dL [employer] [facility] Comment: Reference Range Not established MICROALBUMIN/CREA TININE RATIO, RANDOM URINE 4 <30 mcg/mg creat [employer] [facility] Comment: The ADA defines abnormalities in [...] 11:48 AM EST Meera De La Cruz [facility] LAB URINE AMBULATORY Final Res ult [employer] [facility] [address] [facility] 3RD [place] [address], [employer] [facility] [address] [facility] (NL2) [place] [address] * (ABNORMAL) LIPID PANEL (08/22/2022 11:47 AM EST) CHOLESTEROL, TOTAL 206(H) <200 mg/dL [employer] [facility] HDL CHOLESTEROL 66 > OR = 40 mg/dL [employer] [facility] TRIGLYCERIDES 39 <150 mg/dL [employer] [facility] LDL-CHOLESTEROL 128(H) 99 mg/dL (calc) [employer] [facility] Comment: Reference range: <100 Desirable range <100 mg/dL for primary prevention; <70 mg/dL for patients with CHD or diabetic patients with > or = 2 CHD risk factors. LDL-C is now calculated using the Angelica calculation, which is a validated novel method providing better accuracy than the Friedewald equation in the estimation of LDL-C. Juan PEREYRA et al. JANE. 2013;310(19): 4571-2957 (http://education.Green Vision Systems.bMenu/faq/RRX548) CHOL/HDLC RATIO 3.1 <5.0 (calc) M2M Solution NON-HDL CHOLESTEROL 140(H) <130 mg/dL (calc) M2M Solution Comment: For patients with diabetes plus 1 major ASCVD risk factor, treating to a non-HDL-C goal of <100 mg/dL (LDL-C of <70 mg/dL) is considered a therapeutic option. Blood Blood / Unknown 08/22/2022 1 1:47 AM EST 08/22/2022 11:48 AM EST Meera De La Cruz [facility] LAB - BLOOD DRAW Final Result [employer] [address] [address], [employer] [facility] [address] [facility] (NL2) [place] [address] * (ABNORMAL) COMPREHENSIVE METABOLIC PANEL (08/22/2022 11:47 AM EST) GLUCOSE 108(H) 65 - 99 mg/dL [employer] [facility] Comment: Fasting reference interval For someone without known diabetes, a glucose value between 100 and 125 mg/dL is consistent with prediabetes and should be confirmed with a follow-up test. UREA NITROGEN (BUN) 15 7 - 25 mg/dL [employer] [facility] CREATININE (blood) 0.89 0.60 - 1.29 mg/dL [employer] [facility] EGFR 106 > OR = 60 mL/min/1 .73m2 [employer] [facility] Comment: The eGFR is based on the CKD-EPI 2020 equation. To calculate the new eGFR from a previous Creatinine or Cystatin C result, go to https://www.kidney.org/professionals/ kdoqi/gfr%5Fcalculator BUN/CREATININE RATIO NOT APPLICABLE 6 - 22 [employer] [facility] SODIUM 138 135 - 146 mmol/L [employer] [facility] POTASSIUM 4.8 3.5 - 5.3 mmol/L [employer] [facility] CHLORIDE 102 98 - 110 mmol/L [employer] [facility] CARBON DIOXIDE 30 20 - 32 mmol/L [employer] [facility] CALCIUM 9.4 8.6 - 10.3 mg/dL [employer] [facility] PROTEIN, TOTAL 7.2 6.1 - 8.1 g/dL [employer] [facility] ALBUMIN 4.3 3.6 - 5.1 g/dL [facility] GLOBULIN 2.9 1.9 - 3.7 g/dL (calc) [employer] [facility] ALBUMIN/GLOBUL IN RATIO 1.5 1.0 - 2.5 (calc) [employer] [facility] BILIRUBIN, TOTAL 0.6 0.2 - 1.2 mg/dL [employer] [facility] ALKALINE PHOSPHATASE 56 36 - 130 U/L [employer] [facility] AST 19 10 - 40 U/L [employer] [facility] ALT 19 9 - 46 U/L [facility] Blood Blood / Unknown 08/22/2022 1 1:47 AM EST 08/22/2022 11:48 AM EST Meera De La Cruz [facility] LAB - BLOOD DRAW Edited Result - Final [employer] [address] [address], [employer] [address] (NL2) [place] [address] * (ABNORMAL) HEPATITIS A,B,C PANEL (04/26/2020 4:04 [...] PM EDT 04/26/2020 6:29 PM EDT Narrative [facility] - 04/26/2020 7:53 PM EDT [employer], a member of [address] [address] General Office Worker - Becky Aguirre MD PT ID [id number] ORD# [id number] Meerajoanne [facility] - BLOOD DRAW Edited Result - Final Performing Organization Address [facility]/ZIP Co de Phone Number [facility] [address] [place] [address], [place] [phone] * HIV-1 & HIV-2 ANTIBODIES (08/06/2017 11:50 AM EST) [facility] HIV 1 AND 2 ANTIBODY SCREEN NEGATIVE [...] 11:50 AM EST 08/06/2017 1:[address] [facility] - 08/06/2017 6:33 PM EST [address] [address] PT ID [id number] ORD# [id number] Julia Castillo [employer] LAB - BLOOD DRAW Final Result Performing Organization Address [facility] de Phone Number [address] [address], [place] [phone] from Last 3 Months or Most Recently Relevant to Health Maintenance Insurance HEALTH SAFETY NET DENTAL [employer] [place] [id number] [facility]) Member Subscriber Plan / Payer (Ef fective 2019-Present) Name:Moises Bauer Relation to Subscriber:Self Name:Moises Bauer Payer ID:[id number] Group ID:Not on file Type:Indemnity Address: [address] [place] [address] Care Teams Histology Supervisor Relationship Specialty Start Date End Date Meera De La Cruz FNP [address] [place] [address] PCP - General Internal Medicine 09/30/18
[2025-01-19 12:58] LABS: MANUAL DIFF FLAG NO
[2025-01-19 13:15] LABS: Hematocrit 42.8 % (42.0-52.0); Hemoglobin 13.9 g/dl (14.0-18.0); Imm Gran Abs Auto 0.00 X10*3/uL (0.00-0.03); Imm Gran Pct Auto 0.0 % (0.0-0.4); Lymphocytes Absolute Auto 1.8 X10*3/uL (1.2-4.9); Mean Corpuscular HGB Conc 32.5 g/dl (31.0-36.0); Mean Corpuscular Hemoglobin 27.6 pg (27.0-33.0); Mean Corpuscular Volume 85.1 fL (80.0-98.0); NRBC Abs Auto 0.000 X10*3/uL (0.0-0.012); NRBC Pct Auto 0.0 /100WBC (0.0-0.2); Platelet Count 247 X10*3/uL (160-400); Red Blood Count 5.03 X10*6/uL (4.60-5.80); White Blood Count 4.3 X10*3/uL (4.8-10.8)
[2025-01-19 13:21] LABS: Appearance Urine Turbid; Glucose Urine UA Negative (Negative); PH 5.0 (5.0-9.0); Specific Gravity - Urine >= 1.030 (1.005-1.025)
[2025-01-19 16:44] LABS: Alanine Aminotransferase 37 U/L (0-40); Albumin Level 4.2 g/dL (3.5-5.0); Alkaline Phosphatase 77 U/L (39-117); Anion Gap 12 (12-20); Aspartate Amino Transferase 36 U/L (5-37); Blood Urea Nitrogen 13 mg/dL (9-16); Calcium 9.2 mg/dL (8.4-10.2); Carbon Dioxide 26 mmol/L (22-29); Chloride 103 mmol/L (96-108); Cholesterol 183 mg/dL (<200); Estimated Glomerular Filt Rate > 60; HDL Cholesterol 49 mg/dL (>40); Potassium 4.0 mmol/L (3.3-5.1); Sodium 137 mmol/L (135-145); Total Protein 7.4 g/dL (6.5-8.0); Triglycerides 58 mg/dL (<150)
[2025-01-19 16:56] LABS: PSA,Total (Free>4and<10) 2.71 ng/mL (0.00-4.00)
== END 2025-01-19 11:07 | disposition home or self-care (01) ==
LOC: HO.HMGCLDS 11:06
DX: Z00.00 Encounter for general adult medical examination without abnormal findings (principal); B35.3 Tinea pedis
CPT/HCPCS: 36415; 80053; 80061; 81003; 82306; 84153; 84443; 85025

== ENCOUNTER 2025-04-05 13:49 | Outpatient (AMB) | payer OTHER, SELFPAY ==
[2025-04-05 13:52] VITALS: BP 110/62; PULSE 70; RESP 18; TEMP 36.2; O2SAT 98; BMI 26.2
--- NOTE | 2025-04-05 13:52 | MHC.PC.OV ---
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 Accompanied by: Self / Same As Patient Allergies No Known Allergies Allergy (Verified 04/05/25 14:22) Medication List - Last Reconciled 04/05/25 by NAVEEN Rivera ibuprofen 800 mg PO Q8H PRN metformin 500 mg PO BID Tobacco use date assessed: 04/05/25 Dental Screening Dental Screen Date: 04/05/25 Did you have a dental visit in the last 12 months?: No Did you have a dental problem in the last 6 months where you did not have access to dental care?: No Was dental information given to patient?: No HPI annual exam/labs HPI Details The patient is a 49-year-old male presenting for annual physical Dentist: up to date Eye: up to date Snellen: Right: Left: Corrected vision: yes, glasses STI screening: Colonoscopy: [facility] 2 years ago Pap Smer: PHQ-9: Flu: yes COVID: x3 Tdap: Due-the patient reports that he was in [place] and we will get this done at a later date Diet: Reports regular diet Exercise: Reports not much exercise due to work scheduled The patient is a 49-year-old male presenting for a routine physical examination and management of chronic conditions. The patient has a history of Diabetes Mellitus, with a recent hemoglobin A1c of 7.7, slightly decreased from a previous value of 7.9. The current management plan includes increasing the dosage of metformin to two tablets twice daily to better control blood glucose levels. The patient also has hyperlipidemia, with slightly elevated LDL cholesterol levels. Dietary modifications have been recommended to manage cholesterol levels, including reducing intake of high-cholesterol foods and fried foods. Hypertension is another chronic condition being monitored, with current management focusing on lifestyle modifications. Preventative care measures discussed include updating the tetanus vaccination, which was last administered in 2014 and is now due. The patient has Tinea Versicolor widespread on his torso and his requesting a cream for this [facility] Medical History (Updated 04/06/25 @ 21:31 by NAVEEN Rivera) Tinea versicolor Tinea pedis Diabetes mellitus Family History Other Diabetes Social History Housing: Apartment Patient Tobacco Use Status: Never used Tobacco e-Cigarette/Vaping Use: Never Used Second Hand Smoke Exposure: No service: No Current occupational status: employed Current occupational exposures/hazards: No Cognitive needs: No Hearing needs: No Vision needs: Yes Questionnaire PHQ-9 Over the last 2 weeks, how often have you been bothered by any of the following problems? 1. Little interest or pleasure in doing things: not at all 2. Feeling down, depressed, or hopeless: not at all 3. Trouble falling or staying asleep, or sleeping too much: not at all 4. Feeling tired or having little energy: not at all 5. Poor appetite or overeating: not at all 6. Feeling bad about yourself - or that you are a failure or have let yourself or your family down: not at all 7. Trouble concentrating on things, such as reading the newspaper or watching television: not at all 8. Moving or speaking so slowly that other people could have noticed. Or the opposite - being so fidgety or restless that you have been moving around a lot more than usual: not at all 9. Thoughts that you would be better off or of hurting yourself in some way: not at all Total score: 0 Depression Screening Interpretation: Negative Depression Screening Done: Yes Source: Developed by Drs. Calixto Rodríguez, Nona Courtney, Aron Carroll and colleagues, with an educational niharika from [employer]. Thrive Questionnaire Date Thrive assessed: 04/05/25 I am a: Patient What is your living situation today?: I have a steady place to live Within the past 12 months, did the food you bought not last and you didn't have the money to get more?: I choose not to answer this question Within the past 12 months, did you worry whether your food would run out before you got money to buy more?: Never true Do you have trouble paying for medicines?: No Do you have trouble getting transportation to medical appointments?: No Do you have trouble paying your heating and electricity bill?: No Do you have trouble taking care of your child, family member or friend?: No Do you have trouble with day-to-day activities such as bathing, preparing meals, shopping, managing finances, etc.?: No Are you currently unemployed and looking for a job?: No Are you interested in more education?: No Please select the resources that you would like help with: None Currently or been in a relationship where the following occur: I choose not to answer THRIVE Score: 0 AUDIT C Alcohol Use Questionnaire (AUDIT-C) 1. How often do you have a drink containing alcohol?: Never 3. How often do you have six or more drinks on one occasion?: Never Total Score: 0 WERO-7 AMB Questionnaire WERO-7 Date WERO - 7 assessed: 04/05/25 Feeling nervous, anxious, or on edge: 0 = Not at all Not being able to stop or control worryin = Not at all Worrying too much about different things: 0 = Not at all Trouble relaxin = Not at all Being so restless that it is hard to sit still: 0 = Not at all Becoming easily annoyed or irritable: 0 = Not at all Feeling afraid as if something awful might happen: 0 = Not at all Total WERO-7 score (0-4 normal; 5-9 mild; 10-14 moderate; 15-21 severe): 0 Source: Developed by Drs. Calixto Rodríguez, Nona Courtney, Aron Carroll and colleagues, with an educational niharika from [employer]. Review of Systems Const Denies headache(s) Eyes Denies loss of vision ENT Denies vertigo, Denies dizziness, Denies headache(s) and Denies sore throat Card Denies chest pain, Denies leg edema and Denies lightheadedness Resp Denies cough, Denies hemoptysis and Denies wheezing GI Denies abdominal pain, Denies melena, Denies constipation, Denies diarrhea and Denies vomiting Denies dysuria, Denies urinary frequency and Denies urinary urgency Musc Denies arthralgias, Denies joint swelling, Denies numbness and Denies tingling Skin/Breast Reports change in pigmentation (The white spots all over torso) Neuro Denies Abnormal speech present, Denies behavioral changes, Denies vertigo, Denies dizziness, Denies headache(s), Denies loss of vision, Denies memory loss, Denies numbness and Denies tingling Psych Denies anxiety, Denies behavioral changes, Denies depression, Denies memory loss and Denies panic attacks Aníbal/Lymph Denies easy bleeding and Denies easy bruising Aller/Immun Denies wheezing Physical exam (Primary Care) Vital Signs: Last Vital Signs Temp 97.1 F 04/05/25 13:52 Pulse 70 04/05/25 13:52 Resp 18 04/05/25 13:52 BP 110/62 04/05/25 13:52 Pulse Ox 98 04/05/25 13:52 Oxygen Delivery Method Room Air 04/05/25 13:52 BMI result Body Mass Index 26.2 Tobacco/Smoking Status: Tobacco use Status Tobacco use date assessed 04/05/25 04/05/25 13:59 Patient Tobacco Use Status Never used Tobacco 04/05/25 13:59 e-Cigarette/Vaping Use Never Used 04/05/25 13:59 PHQ-9: PHQ-9 Score PHQ-9: Total score 0 04/06/25 08:28 Depression Screening Interpretation: Negative Thrive Assessment: Date of Thrive Assessment Date Thrive assessed 04/05/25 04/05/25 13:59 Currently or been in a relationship where the following occur: I choose not to answer Const General: healthy appearing, no acute distress, alert and awake Nutritional Appearance: well nourished Orientation/consciousness: oriented to person, oriented to place and oriented to time HENMT Ears: TM's normal bilaterally General nose exam: Normal nasal mucous membranes and turbinates present Eyes Conjunctivae: conjunctivae normal Sclerae: sclerae normal Pupils: Equal, round and reactive pupils present Neck Neck: Yes no lymphadenopathy and Yes no JVD Thyroid: Thyroid normal Carotids: no bruits Resp Effort & Inspection: normal respiratory effort and not tachypneic Auscultation: no crackles, no rales, no rhonchi and no wheezes Cardio Rate: regular rate Rhythm: regular rhythm Heart sounds: no murmurs and normal S1 and S2 GI Palpation (GI): Soft to palpation, nontender, no hepatomegaly and no splenomegaly Auscultation: normal bowel sounds Skin General skin exam: dry skin Rashes: rashes noted (Tinea versicolor widespread across torso) Neuro General: oriented to person, oriented to place and oriented to time Cranial nerves: Yes Equal, round and reactive pupils present Speech: No Abnormal speech present Gait exam (Neuro): Normal gait present Motor exam (neuro): no tremor noted Deep tendon reflexes (DTR's): Right triceps reflex intensity grade: 2+, Left triceps reflex intensity grade: 2+, Rt Biceps (C5, C6): 2+, Left biceps reflex intensity grade: 2+, Right brachioradialis reflex intensity grade: 2+, Left brachioradialis reflex intensity grade: 2+, Right patellar reflex intensity grade: 2+ and Left patellar reflex intensity grade: 2+ Extrem Right upper extremity: full ROM Left upper extremity: full ROM Right lower extremity: full ROM; no edema Left lower extremity: full ROM; no edema Psych Mental Status: mental status grossly normal Speech and movement: Normal speech and movement present Affect: normal affect Attitude: cooperative Thought process: Normal thought process present Results AMB Hemoglobin A1c AMB Hemoglobin A1c 7.7 % Last Edit by Mirela Mckeon MA on 04/05/25 14:43 Results Reviewed Results Reviewed: Laboratory Last Values Hgb A1c (Clinic) 7.7 % (4.0-6.0) H 04/05/25 14:31 Laboratory Tests 01/19/25 04/05/25 11:13 14:31 WBC 4.3 L RBC 5.03 Hgb 13.9 L Hct 42.8 MCV 85.1 MCH 27.6 MCHC 32.5 RDW 13.2 Plt Count 247 Sodium 137 Potassium 4.0 Chloride 103 Carbon Dioxide 26 Anion Gap 12 BUN 13 Creatinine 0.98 Estimated GFR > 60 Fasting Glucose 145 H Hgb A1c (Clinic) 7.7 H Calcium 9.2 Total Bilirubin 0.6 AST 36 ALT 37 Alkaline Phosphatase 77 Total Protein 7.4 Albumin 4.2 Triglycerides 58 Cholesterol 183 LDL Cholesterol, Calc 123 H HDL Cholesterol 49 Total PSA 2.71 25-OH Vitamin D Total 76.9 TSH 0.83 Urine Color Dark Yellow Urine Appearance Turbid Urine pH 5.0 Ur Specific Constable >= 1.030 H Urine Protein Trace Urine Glucose (UA) Negative Urine Ketones Trace Urine Blood Negative Urine Nitrite Negative Ur Leukocyte Esterase Negative Coding Level of Care Code Est Pt Prev Care 40-64y(54398) Diagnoses Annual physical exam Z00.00 Hyperlipidemia, unspecified hyperlipidemia type E78.5 Hyperlipidemia type: unspecified Type 2 diabetes mellitus with hyperglycemia, without long-term current use of insulin E11.65 Diabetes mellitus complication status: with hyperglycemia Diabetes mellitus custodial insulin use: without custodial use Diabetes mellitus type: type 2 Leukopenia, unspecified type D72.819 Leukopenia type: unspecified Tinea versicolor B36.0 Time Spent (min) 36 Assessment & Plan Assessment & Plan (1) Annual physical exam: Code(s): Z00.00 - Encounter for general adult medical examination without abnormal findings Category: Medical Plan: Preventive guidelines and recent labs reviewed with the patient. Patient is up-to-date on most preventative guidelines. He is due for a Tdap, but wants to hold off on this due to time constraints and needing to leave right after this appointment. (2) HLD (hyperlipidemia): Code(s): E78.5 - Hyperlipidemia, unspecified Category: Medical Qualifiers: Hyperlipidemia type: unspecified Qualified Code(s): E78.5 - Hyperlipidemia, unspecified Plan: Triglycerides 58, total cholesterol 183, LDL 123, HDL 49 Discussed lifestyle modifications including dietary changes and physical activity (3) Diabetes mellitus: Code(s): E11.9 - Type 2 diabetes mellitus without complications Category: Medical Qualifiers: Diabetes mellitus complication status: with hyperglycemia Diabetes mellitus long term care phlebotomist insulin use: without custodial use Diabetes mellitus type: type 2 Qualified Code(s): E11.65 - Type 2 diabetes mellitus with hyperglycemia Plan: A1c 7.7% decrease 2 point it was 7.9% on 01/18/2025 goal is less than 7% Increase metformin to a 1000 mg b.i.d. We will recheck check fasting glucose and A1c in 3 months (4) Decreased white blood cell count: Code(s): D72.819 - Decreased white blood cell count, unspecified Category: Medical Qualifiers: Leukopenia type: unspecified Qualified Code(s): D72.819 - Decreased white blood cell count, unspecified Plan: WBC 4.3 slightly below Suspect that this might be normal for patient We will continue to monitor (5) Tinea versicolor: Code(s): B36.0 - Pityriasis versicolor Category: Medical Plan: Flat white spots all over torso. Ketoconazole 2% topical b.i.d. ordered Orders: Orders Comprehensive Met. Panel 3 Months E11.65 - Type 2 diabetes mellitus with hyperglycemia, E78.5 - Hyperlipidemia, unspecified UA CC w/rflx Micro + Cult 3 Months E11. - Type 2 diabetes mellitus with hyperglycemia, E78.5 - Hyperlipidemia, unspecified TSH reflex Free T4 3 Months E11.65 - Type 2 diabetes mellitus with hyperglycemia, E78.5 - Hyperlipidemia, unspecified Hemoglobin A1c 3 Months E11. - Type 2 diabetes mellitus with hyperglycemia, E78.5 - Hyperlipidemia, unspecified AMB Hemoglobin A1c 04/05/25 Z13.9 - Encounter for screening, unspecified Lipid Panel 3 Months E11.65 - Type 2 diabetes mellitus with hyperglycemia, E78.5 - Hyperlipidemia, unspecified Medications: New ketoconazole 2% 1 appl topical BID 60 grams 3RF Changed From metformin 500 mg PO BID 60 tabs 2RF To metformin 1,000 mg (2 x 500 mg) PO BID 360 tabs 2RF 90 days Refilled ibuprofen 800 mg PO Q8H PRN 30 tabs 0RF pain ibuprofen 800 mg PO Q8H PRN 30 tabs 3RF pain
--- OUTSIDE RECORDS SUMMARY | 2025-04-05 19:07 | XMS_ITS | Clinical Summary ---
Author Organization [facility] Address [address] [place] [address] Care Team Providers Care Custom Bookbinder Name Role Phone Meera De La Cruz [facility] Primary Care Provider [phone] Source Comments PLEASE NOTE, if this patient [...] meter monitoring kitIndications:Di abetes mellitus without complication ([facility]) as needed for blood glucose monitoring Freestyle lite glucometer. Check sugar daily. Dx; E11.65. 1 Each 0 Active lancets (FREESTYLE LANCETS) 28 gaugeIndications: Diabetes mellitus without complication ([facility]) Freestyle lite lancets. Check sugar daily. Dx; E11.65. 100 Each 3 0 Active blood sugar diagnostic (FREESTYLE TEST) stripsIndications :Diabetes mellitus without complication ([facility]) 1 Each as needed for high [...] complication, without long-term current use of insulin ([facility]) 06/23/2021 Palpitations 08/17/2020 Cutaneous skin tags, face 12/23/2018 Erythema 02/11/2018 Overview (02/11/2018): Pt was seen over at the ear nose and throat he has a diagnosed of erythema over the arytenoids Seasonal allergies 01/16/2016 Chronic lower back pain 07/19/2015 Overview (01/27/2016): XR L spine(01/17/16, [facility] Normal. Hepatitis B surface antigen positive 05/06/2015 Overview (04/25/2017): By blood test 04/06/2015. Following ID at [facility] S/P treatment with Lamivudine visit 11/2015, [...] 05/06/2015 Td (adult), 5 Lf tetanus tox oid (Teniva), preservative free 04/05/2015 Family History Medical History [...] - Ri sk 2-dose series) 1993 Imm-Pneumococcal 50+ (1 of 2 - PCV) 1993 HIV [...] Charting 09/08/2023 09/06/2022 Hypertension Screening (#1) 12/19/2023 Alcohol and Drug Screen 07/22/2024 08/22/19 23, 09/15/2021, 07/28/2020, Additional history exists Depression Annual Screen 07/22/2024 08/22/2022 Imm-Zoster, Recombinant (1 of 2) 2024 [id number] ( season) 2025 08/22/2022, 08/25/2020, 08/04/2020 Imm-Influenza (#1) 2025 04/07/2020, 0 04/07/2020, 03/02/2019, Additional history exists Imm-DTaP/Tdap/Td (2 [...] A1C 6.0(H) <5.7 % of total Hgb Trellie Comment: For someone without known diabetes, a [...] children. MEAN PLASMA GLUCOSE 136 mg/dL (calc) Trellie Blood Blood / Unknown 08/22/2022 1 1:47 AM EST 08/22/2022 11:48 AM EST Meera [facility] - BLOOD DRAW Edited Result - Final [facility] [address] [place] [address] [address] [place] [address], Trellie [address] [facility] ([address]) [place] [address] * MICROALBUMIN/CREATININE RATIO, URINE, RANDOM (08/22/2022 11:47 AM EST) CREATININE, RANDOM URINE 138 20 - 320 mg/dL Active Endpoints [facility] MICROALBUMIN 0.6 mg/dL [facility] Comment: Reference Range Not established MICROALBUMIN/CREA TININE RATIO, RANDOM URINE 4 <30 mcg/mg creat Trellie Comment: The ADA defines abnormalities in albumin [...] 11:48 AM EST Meera De La Cruz [facility] URINE AMBULATORY Final Res ult [employer] [facility] [address] [facility] [address] [place] [address], Active Endpoints [facility] [address] [facility] [address]) [place] [address] * (ABNORMAL) LIPID PANEL (08/22/2022 11:47 AM EST) CHOLESTEROL, TOTAL 206(H) <200 mg/dL [employer] [facility] HDL CHOLESTEROL 66 > OR = 40 mg/dL Trellie TRIGLYCERIDES 39 <150 mg/dL [facility] LDL-CHOLESTEROL 128(H) 99 mg/dL (calc) [employer] [facility] Comment: Reference range: <100 Desirable range <100 mg/dL for primary prevention; <70 mg/dL for patients with CHD or diabetic patients with > or = 2 CHD risk factors. LDL-C is now calculated using the Angelica calculation, which is a validated novel method providing better accuracy than the Friedewald equation in the estimation of LDL-C. Juan PEREYRA et al. JANE. 2013;310(19): 3439-9380 (http://education.White Castle/faq/PRI660) CHOL/HDLC RATIO 3.1 <5.0 (calc) Trellie NON-HDL CHOLESTEROL 140(H) <130 mg/dL (calc) Trellie Comment: For patients with diabetes plus 1 major ASCVD risk factor, treating to a non-HDL-C goal of <100 mg/dL (LDL-C of <70 mg/dL) is considered a therapeutic option. Blood Blood / Unknown 08/22/2022 1 1:47 AM EST 08/22/2022 11:48 AM EST Meera De La Cruz [facility] - BLOOD DRAW Final Result Active [facility] [address] [facility] [address] [place] [address], Active Endpoints [facility] [address] [facility] ([address]) [place] [address] * (ABNORMAL) COMPREHENSIVE METABOLIC PANEL (08/22/2022 11:47 AM EST) GLUCOSE 108(H) 65 - 99 mg/dL [facility] Comment: Fasting reference interval For someone without known diabetes, a glucose value between 100 and 125 mg/dL is consistent with prediabetes and should be confirmed with a follow-up test. UREA NITROGEN (BUN) 15 7 - 25 mg/dL [facility] CREATININE (blood) 0.89 0.60 - 1.29 mg/dL [facility] EGFR 106 > OR = 60 mL/min/1 .73m2 [facility] Comment: The eGFR is based on the CKD-EPI 2020 equation. To calculate the new eGFR from a previous Creatinine or Cystatin C result, go to https://www.kidney.org/professionals/ kdoqi/gfr%5Fcalculator BUN/CREATININE RATIO NOT APPLICABLE 6 - 22 [facility] SODIUM 138 135 - 146 mmol/L [facility] POTASSIUM 4.8 3.5 - 5.3 mmol/L [facility] CHLORIDE 102 98 - 110 mmol/L [facility] CARBON DIOXIDE 30 20 - 32 mmol/L [facility] CALCIUM 9.4 8.6 - 10.3 mg/dL [facility] PROTEIN, TOTAL 7.2 6.1 - 8.1 g/dL [facility] ALBUMIN 4.3 3.6 - 5.1 g/dL [facility] GLOBULIN 2.9 1.9 - 3.7 g/dL (calc) [facility] ALBUMIN/GLOBUL IN RATIO 1.5 1.0 - 2.5 (calc) [facility] BILIRUBIN, TOTAL 0.6 0.2 - 1.2 mg/dL [facility] ALKALINE PHOSPHATASE 56 36 - 130 U/L [facility] AST 19 10 - 40 U/L [facility] ALT 19 9 - 46 U/L [facility] Blood Blood / Unknown 08/22/2022 1 1:47 AM EST 08/22/2022 11:48 AM EST Meera De La Cruz [facility] - BLOOD DRAW Edited Result - Final [facility] [address] [place] [address], [facility] [address]) [place] [address] * (ABNORMAL) HEPATITIS A,B,C PANEL (04/26/2020 4:04 PM EDT) HEPATITIS B SURFACE ANTIBODY NEGATIVE NEGATIVE [facility] HEPATITIS B SURFACE ANTIGEN POSITIVE(A) NEGATIVE [facility] Comment: Over the counter supplements containing high doses of biotin may interfere with this assay. If interference is suspected, patients shoud be retested after refraining from biotin supplements for 72 hours. HEPATITIS C VIRUS DIAGNOSTIC NEGATIVE NEGATIVE [facility] HEPATITIS B CORE ANTIBODY POSITIVE(A) NEGATIVE [facility] HEPATITIS A ANTIBODY TOTAL POSITIVE(A) NEGATIVE [facility] Comment: Over the counter supplements containing high doses of biotin may interfere with this assay. If interference is suspected, patients shoud be retested after refraining from biotin supplements for 72 hours. Blood Blood / Unknown 04/26/2020 4 :04 PM EDT 04/26/2020 6:29 PM EDT Narrative [facility] - 04/26/2020 7:53 PM EDT [place], a member of [address] [place] [address] Vice President Of Manufacturing - Becky Aguirre MD PT ID [id number] ORD# [id number] Meera De La Cruz CUTTING SUPERVISOR LAB - BLOOD DRAW Edited Result - Final Performing Organization Address [facility]/ZIP Co de Phone Number [facility] [address] [place] [address], * HIV-1 & HIV-2 ANTIBODIES (08/06/2017 11:50 AM EST) [facility] HIV 1 AND 2 ANTIBODY SCREEN NEGATIVE NEGATIVE [facility] Comment: This assay is a 4th generation [...] 11:50 AM EST 08/06/2017 1:21 PM EST [facility] - 08/06/2017 6:33 PM EST [facility] AMT [address] [place] [address] PT ID [id number] ORD# [id number] Julia Castillo NP LAB - BLOOD DRAW Final Result Performing Organization Address [facility] de Phone Number [address] [address], [place] [phone] from Last 3 Months or Most Recently Relevant to Health Maintenance Insurance [employer] NET DENTAL [employer] [place] [id number] [facility]) Member Subscriber Plan / Payer (Ef fective 2019-Present) Name:Moises Bauer Relation to Subscriber:Self Name:Moises Bauer Payer ID:[id number] Group ID:Not on file Type:Indemnity Address: [address] [place] [id number] Care Teams Custom Bookbinder Relationship Specialty Start Date End Date Meera De La Cruz FNP [address] [place] [id number] PCP - General Internal Medicine 09/30/18
== END 2025-04-05 16:24 | disposition home or self-care (01) ==
LOC: HO.HMCH 13:49
DX: Z00.00 Encounter for general adult medical examination without abnormal findings (principal); E78.5 Hyperlipidemia, unspecified; E11.65 Type 2 diabetes mellitus with hyperglycemia; D72.819 Decreased white blood cell count, unspecified; B36.0 Pityriasis versicolor

== ENCOUNTER → 2025-04-05 13:49 | Outpatient (BNVA) | payer OTHER, SELFPAY | DX: Z00.00 Encounter for general adult medical examination without abnormal findings (principal); E78.5 Hyperlipidemia, unspecified; I10 Essential (primary) hypertension; E11.65 Type 2 diabetes mellitus with hyperglycemia; D72.819 Decreased white blood cell count, unspecified; B36.0 Pityriasis versicolor | CPT/HCPCS: 83036; 99396 ==

== ENCOUNTER 2025-07-05 12:14 | Outpatient (REF) | payer OTHER, SELFPAY ==
[2025-07-05 13:39] LABS: Appearance Urine Clear; Glucose Urine UA Negative (Negative); PH 5.5 (5.0-9.0); Specific Gravity - Urine 1.025 (1.005-1.025)
[2025-07-05 16:58] LABS: Alanine Aminotransferase 39 U/L (0-40); Albumin Level 4.5 g/dL (3.5-5.0); Alkaline Phosphatase 85 U/L (39-117); Anion Gap 9 (12-20); Aspartate Amino Transferase 36 U/L (5-37); Blood Urea Nitrogen 16 mg/dL (9-16); Calcium 9.8 mg/dL (8.4-10.2); Carbon Dioxide 29 mmol/L (22-29); Chloride 103 mmol/L (96-108); Cholesterol 174 mg/dL (<200); Estimated Glomerular Filt Rate > 60; HDL Cholesterol 54 mg/dL (>40); Potassium 4.0 mmol/L (3.3-5.1); Sodium 137 mmol/L (135-145); Total Protein 7.7 g/dL (6.5-8.0); Triglycerides 44 mg/dL (<150)
== END 2025-07-05 12:15 | disposition home or self-care (01) ==
LOC: HO.HMGCLDS 12:14
DX: E11.65 Type 2 diabetes mellitus with hyperglycemia (principal); E78.5 Hyperlipidemia, unspecified
CPT/HCPCS: 36415; 80053; 80061; 81003; 83036; 84443